=== PATIENT | female | born 1965 | race Caucasian/White ===

== ENCOUNTER → 2017-03-17 | Outpatient (CLI) | payer OTHER | LOC: BRMIMAGING 10:54 | PROVIDERS: ATTEND Family Medicine | DX: Z12.31 Encounter for screening mammogram for malignant neoplasm of breast (principal); Z80.3 Family history of malignant neoplasm of breast | CPT/HCPCS: G0202 ==

== ENCOUNTER → 2017-12-15 | Outpatient (CLI) | payer OTHER | LOC: BRMIMAGING 08:47 | PROVIDERS: ATTEND Family Medicine | DX: N63.10 Unspecified lump in the right breast, unspecified quadrant (principal) | CPT/HCPCS: 76641-PO ==

== ENCOUNTER → 2019-01-25 | Outpatient (CLI) | payer OTHER | LOC: BRMIMAGING 07:31 ==